=== PATIENT | female | born 1990 | race Caucasian/White ===

== ENCOUNTER 2020-10-10 00:37 | Outpatient (CLI) | payer OTHER, SELFPAY ==
[2020-10-10 19:42] LABS: SARS-CoV-2 RNA PCR Negative
== END 2020-10-10 00:38 | disposition home or self-care (01) ==
LOC: ANHCOVIDDT 00:38
PROVIDERS: Visit Provider Obstetrics & Gynecology
DX: Z01.812 Encounter for preprocedural laboratory examination (principal); Z20.822 Contact with and (suspected) exposure to COVID-19
CPT/HCPCS: C9803; U0003

== ENCOUNTER 2020-10-11 01:16 | Day surgery (SDC) | payer OTHER, SELFPAY ==
[2020-10-10 16:25] VITALS: BMI 26.2
--- NOTE | 2020-10-11 09:27 | P.PNAN_ITS ---
Anes - Initial Pre Proc Eval Procedure: Operation Date: 10/11/20 15:30 Proposed Procedures p Suction Dilatation and Curettage - Joel Phillips MD Date/Time: 10/11/20 09:27 Surgeon: Joel Phillips MD Pre Op Diagnosis: Missed Ab Patient Data Age: 30 Gender: F Height: 1.65 m Weight: 71.6 kg Allergies Allergy/AdvReac Type Severity Reaction Status Date / Time No Known Allergies Allergy Verified 10/11/20 13:38 Home Medications Medication Instructions Recorded Confirmed Type alprazolam 0.25 mg PO TID PRN 10/10/20 10/10/20 History fluoxetine 20 mg PO TID 10/10/20 10/11/20 History Patient hx anesthesia problems: none Family hx anesthesia problems: none [facility] Past Medical History Medical History Anxiety Depression Social History Social History Years smoked: 1 Smoking status: Former smoker Tobacco type: e-cigarettes/vaping Alcohol intake: current Drinks per week: 1 Substance use: current Substance use type: marijuana Living arrangements: with family Spiritual care concerns: No Anes - Eval Final PreProcedure Day of Procedure 10/11/20 09:27 Patient weight: overweight Heart: regular rate and rhythm Lungs: clear to auscultation and normal air movement Airway: Mallampati scale class 1 Neurological: alert and oriented Last oral intake: >/= 8 hours ASA classification: II Emergent: no Anesthetic plan: proceed Anesthesia type and monitoring: general GIVS and standard monitoring Informed Consent: The patient's anesthetic plan and its attendant risks and benefits were discussed with the patient/family/POA. Questions were solicited and answers provided to the satisfaction of the patient/family/POA.
--- NOTE | 2020-10-11 12:11 | PM.IMHP ---
H&P: HPI History of Present Illness Date/Time: 10/11/20 12:11 Chief Complaint: Miscarriage Narrative: 30 y/o at 11 weeks gestation. She had vaginal bleeding and had an ultrasound exam on 09/18/2020 showing an intrauterine fluid collection, but no embryo. She has continued to have low grade bleeding and persistently elevated hcg levels. She had initially desired expectant management, but because the SAB has not completed over the last 3 weeks, she is interested in surgical management of her problem with dilation and suction curettage. Review of Systems Review of Systems: All systems reviewed & are unremarkable except as noted in HPI and below PMFSH Past Medical History Medical History Anxiety Depression Social History Social History Years smoked: 1 Smoking status: Former smoker Tobacco type: e-cigarettes/vaping Alcohol intake: current Drinks per week: 1 Substance use: current Substance use type: marijuana Living arrangements: with family Spiritual care concerns: No Meds Home Medications and Allergies Home Medications Medication Instructions Recorded Confirmed Type alprazolam 0.25 mg PO TID PRN 10/10/20 10/10/20 History fluoxetine 20 mg PO TID 10/10/20 10/10/20 History Allergies Allergy/AdvReac Type Severity Reaction Status Date / Time No Known Allergies Allergy Verified 10/10/20 16:35 Exam Const: Orientation/consciousness: patient oriented x3 Other: Well-developed, well-nourished female in no acute distress. Neck: Thyroid: thyroid normal Lymphatic: no lymphadenopathy noted (in neck, axilla or inguinal nodes) Resp: Effort & Inspection: normal respiratory effort Auscultation: clear to auscultation bilaterally Cardio: Rate: regular rate Rhythm: regular rhythm Heart sounds: S1 normal heart sound present and S2 normal heart sound present GI: Other: ABD: Soft, nontender, nondistended. No guarding or rebound tenderness. No hepatosplenomegaly. : General: Yes no CVA tenderness Other: External genitalia: normal female hair distribution, without lesion. Urethral meatus: no lesion, non prolapsed. Bladder: no mass, nontender Vagina: well-estrogenized, without lesion or discharge. No cystocele or rectocele. Dark blood is noted. Cervix: no lesion or discharge. Uterus: small, anteverted, freely mobile, nontender Adnexa: no mass or tenderness. Anus/perineum: no lesions, nontender Back/Spine/Pelvis: Back: no CVA tenderness Skin: General skin exam: normal color and no rashes or lesions noted Neuro: General: patient oriented x3 Extrem: Other: Extremities: nontender with no edema Psych: Mental Status: mental status grossly normal Affect: normal affect Assessment and Plan Assessment and plan (1) Incomplete spontaneous : Code(s): O03.4 - Incomplete spontaneous without complication Status: Acute Assessment and Plan: I have offered her a dilation and suction curettage. She understands risks of surgery to include risks of anesthesia, risks of pain, infection, bleeding, blood products, thromboembolic phenomena and damage to adjacent structures such as bowel, bladder, ureters, blood vessels and nerves. She understands all these risks and elects to proceed with surgery.
[2020-10-11] MEDS: ACETAMINOPHEN 500 MG TABLET 1000 MG PO (14:02)
[2020-10-11] MEDS: LACTATED RINGERS 1,000 ML 30 ML IV CONT (14:02)
[2020-10-11 14:55] VITALS: BP 109/55; PULSE 71; RESP 16; TEMP 36.9; O2SAT 100
--- NOTE | 2020-10-11 15:11 | WPDHPUPDATE1 ---
History and Physical Update Update Date/Time: 10/11/20 15:11 History and Physical has been reviewed, including an updated exam of the patient. There are NO changes in the patient's condition. Risks, benefits, and alternatives have been discussed and questions answered. Patient agrees to proceed with procedure.
[2020-10-11] MEDS: LIDOCAINE HCL 1% LOCAL INJ 20 ML VIAL 10 ML INFILTRATE (15:18)
[2020-10-11 15:25] VITALS: BP 106/57; PULSE 62; RESP 16
--- NOTE | 2020-10-11 15:25 | PM.PROC ---
Procedure Note - Detailed Date of procedure: 10/11/20 Pre-op diagnosis: Missed Ab Post-op diagnosis: same Procedure performed: Dilation and suction curettage Description of procedure: The patient was taken to the operating room where she was prepared and draped in the usual sterile fashion in the dorsal lithotomy position. The bladder was drained with a red rubber catheter. A sterile speculum was placed into the vagina. The anterior lip of the cervix was grasped with a single-tooth tenaculum. Ten mL of 1% lidocaine was administered in a paracervical block. The cervix was gently dilated using Hegar dilators until an 8mm dilator could be passed. The 8mm curved tip suction curette was advanced. Suction curettage was performed and products of conception were aspirated. Sharp curettage was then performed until a good uterine cry was noted. A final pass with the suction curette was made. The tenaculum was removed. Hemostasis was excellent. Sponge, lap, needle and instrument counts were correct. The patient was taken to the recovery room in stable condition. I was present and scrubbed for the entire procedure. Implants: None Anesthesia: MAC and local (1% lidocaine) Surgeon: Joel Phillips MD Estimated blood loss (mL): 50 Drains: No Packing: No Pathology: yes (endometrial curettings) Complications: None Condition: stable Disposition: PACU Findings: Products of conception
--- NOTE | 2020-10-11 15:54 | SUR.PHASEII ---
1530 spouse(patricia) at bedside with sposue
[2020-10-11 15:55] VITALS: BP 127/60; PULSE 62; RESP 14
[2020-10-11 16:24] VITALS: BP 121/55; PULSE 70; RESP 16
== END 2020-10-11 16:35 | disposition home or self-care (01) ==
PROVIDERS: Visit Provider Obstetrics & Gynecology
PROC: (CPT 59820; principal; 2020-10-11 15:30)
DX: O02.1 Missed abortion (principal); F41.8 Other specified anxiety disorders; Z87.891 Personal history of nicotine dependence; F12.90 Cannabis use, unspecified, uncomplicated
CPT/HCPCS: 59820; 88305; A9270; C9803; J1885; J2250; J2405; J2590; J2704; J3010; J7120; U0003